=== PATIENT | male | born 2005 | race Two or more races ===

== ENCOUNTER 2024-06-19 12:35 | Emergency (ER) | payer MEDICAID, SELFPAY ==
[2024-06-19 12:40] VITALS: BMI 19.8
--- NOTE | 2024-06-19 12:47 | PD.EDRME ---
Rapid Medical Screening Exam RME Arrival date/time: 06/19/24 12:35 19-year-old male with no known medical history presents to the emergency room with a chief complaint of suicidal ideation. Patient states he is having thoughts of overdosing and hurting himself. Patient states he lost his mom a month ago and since the loss of his mom he has also become homeless. Patient just got released from correction. I have greeted and performed a focused initial assessment of this patient. A comprehensive ED assessment and evaluation of the patient, analysis of all test results, and completion of the medical decision making process will be conducted by additional ED providers. Chief Complaint: Suicidal Time Seen by Provider: 06/19/24 12:43 Vital signs reviewed by provider: Yes
[2024-06-19 12:48] VITALS: BP 141/68; PULSE 89; RESP 16; TEMP 36.7; O2SAT 96
[2024-06-19 13:39] LABS: Amphetamine/Methamp Scrn,U Negative (Negative); Barbiturate Screen,Urine Negative (Negative); Benzodiazepines Screen,Urine Negative (Negative); Benzoylecgonine Screen, Ur Negative (Negative); Fentanyl Screen,Urine Negative (Negative); Opiate Screen,Urine Negative (Negative); THC Screen,Urine Positive (Negative)
--- NOTE | 2024-06-19 14:05 | EDNOTE_ITS ---
ED General RME/HPI General Chief complaint: Suicidal Stated complaint: SI, WITH NO PLAN HE WANTS A GROUP HOME Time Seen by Provider: 06/19/24 12:43 Arrival date/time: 06/19/24 12:35 CC: Suicidal ideation without a plan HPI feeling suicidal for the last 2 days patient is very vague on if he had a plan himself denies any homicidal ideation. Patient denies any physical pain. Last episode was in February 2024. RME / HPI RME / HPI narrative: 06/19/24 12:35 19-year-old male with no known medical history presents to the emergency room with a chief complaint of suicidal ideation. Patient states he is having thoughts of overdosing and hurting himself. Patient states he lost his mom a month ago and since the loss of his mom he has also become homeless. Patient just got released from prison. I have greeted and performed a focused initial assessment of this patient. A comprehensive ED assessment and evaluation of the patient, analysis of all test results, and completion of the medical decision making process will be conducted by additional ED providers. Related Data Allergies Allergy/AdvReac Type Severity Reaction Status Date / Time No Known Allergies Allergy Verified 06/19/24 12:40 Review of Systems Review of Systems Narrative Review of Systems: GEN: No fever, no chills, no weight loss EYES: No discharge, no visual changes, no pain HEENT: No ear pain, no congestion, no sore throat PULM: No shortness of breath, no cough, no congestion CV: No chest pain, no dyspnea on exertion, no palpitations GI: No nausea, no vomiting, no diarrhea, no pain, no constipation : No frequency, no urgency, no dysuria MUSC/SKEL: No joint pain, no back pain SKIN: No rash PSYCH: No hallucinations, no depression, + suicidal ideation HEME/LYMPH: No easy bleeding or bruising tendencies NEURO: No weakness, no headache Past Medical History Past Medical History CARDIAC: Negative Congestive Heart Failure RESPIRATORY: Negative Chronic Obstructive Pulmonary Disease (COPD) GENITOURINARY: Negative Renal Disease ENDOCRINE: Negative Diabetes Mellitus Type 1 or Diabetes Mellitus Type 2 PSYCHO/SOCIAL: Positive Bipolar Disorder, Anxiety and Post Traumatic Stress Disorder Social History SMOKING STATUS: Former smoker ED Exam Narrative Physical exam: [General:Not in any acute distress Head normocephalic HEENT: Within acceptable limits Neck is supple nontender Chest equal chest rise nontender to palpation Respiratory: Clear to auscultation no wheezes crackles or rubs CV: Rate rhythm is regular no murmurs rubs or clicks Abdomen soft nontender no masses positive bowel sounds all 4 quadrants Skin: Intact no petechiae rash induration ulceration or crepitus Extremities: Moving all extremity against resistance cap refill less than 2 seconds neurosensory intact Neuro: Awake alert oriented x3 Glascow coma 15 no focal deficits] Course Quality Measures none Orders Category Date Time Status Suicide precautions NOW Care 06/19/24 12:46 Completed Diet Regular Diet 06/19/24 Dinner Active Alcohol, Urine Stat Lab 06/19/24 14:01 Completed CBC Stat Lab 06/19/24 14:42 Completed CMP [Comprehensive Metabolic Panel] Stat Lab 06/19/24 14:42 Completed Drug Screen,Urine Stat Lab 06/19/24 13:00 Completed Vital Signs Vital signs: Vital Signs Temperature 98.0 F 06/19/24 12:48 Pulse Rate 89 06/19/24 12:48 Respiratory Rate 16 06/19/24 12:48 Blood Pressure 141/68 H 06/19/24 12:48 Pulse Oximetry (%) 96 06/19/24 12:48 Oxygen Delivery Method Room Air 06/19/24 12:48 [facility] Patient data External records reviewed:: [facility] previous records Clinical information provided by:: patient Social determinants that could affect healthcare access:: none Patient has the following chronic illnesses:: Depression How is presenting disease/condition affected by chronic disease/condition?: e xacerbated by Evaluation data The following diagnostics were reviewed and interpreted by me:: lab results Lab and/or radiology exams considered but not ordered:: Cleared for crisis Interpretation Summary: Suicidal ideation Medications Medications considered but not ordered:: None none Medication administrations:: None Consultations Consultation(s) initiated? (list below): No Diagnosis Differential Diagnosis ED Complaint MDM: Suicidal ideation suicide attempt severe depression Most likely diagnosis given after review of the tests above:: Suicidal ideation Admission Indicated Admission indicated?: indicated Explain why admission is indicated or not indicated:: Hold Admission Request Was there a request for admission?: No Disposition Plan Disposition Plan: Transfer Medical Decision Making Differential Diagnosis Differential Diagnosis: Suicidal ideation suicide attempt severe depression Lab Data 06/19/24 14:42 06/19/24 14:42 Labs: Lab Results 06/19/24 06/19/24 06/19/24 Range/Units 13:00 14:01 14:42 WBC 9.3 (3.8-10.6) Thou/mm3 RBC 5.26 (4.50-5.90) Miln/mm3 Hgb 15.2 (13.5-16.0) g/dL Hct 43.1 (41.0-53.0) % MCV 82 (80-100) fL MCH 28.9 (25.0-35.0) pg MCHC 35.3 (31.0-37.0) g/dl RDW Std Deviation 38.6 (35.1-43.9) fL Plt Count 211 (140-440) Thou/mm3 Neut % (Auto) 85 H (37-80) % Lymph % (Auto) 9 L (10-50) % [place] % (Auto) 6 (0-12) % Eos % (Auto) 0 (0-10) % Baso % (Auto) 0 (0-2.5) % Neut # (Auto) 7.9 H (1.8-7.7) Thou/mm3 Lymph # (Auto) 0.8 L (1.0-4.8) Thou/mm3 [place] # (Auto) 0.5 (0.0-0.8) Thou/mm3 Eos # (Auto) 0.0 (0.0-0.5) Thou/mm3 Baso # (Auto) 0.0 (0.0-0.2) Thou/mm3 Immature Gran # (Auto) 0.03 H (0.00-0.00) Thou/mm3 Absolute Nucleated RBC 0.00 (0.00-0.00) Thou/mm3 Immature Gran % 0 (0-0) % Nucleated RBC % 0 (0) /100 WBC Sodium 140 (136-145) mMol/L Potassium 4.1 (3.4-5.1) mMol/L Chloride 104 (98-107) mMol/L Carbon Dioxide 26.0 (20.0-31.0) mMol/L Anion Gap 10 (7-16) BUN 10 (9-23) mg/dL Creatinine 0.9 (0.6-1.3) mg/dL Estim Creat Clear Calc 108.3 (>60) mL/min eGFR > 60 (60 - ) See Note BUN/Creatinine Ratio 11 L (12-20) Ratio Glucose 95 (74-106) mg/dL Calculated Osmolality 278 (275-295) Calcium 9.5 (8.3-10.6) mg/dL Corrected Calcium 9.5 (8.5-10.1) mg/dL Total Bilirubin 1.9 H (0.3-1.2) mg/dL AST 17 (0-34) U/L ALT 13 (10-49) U/L Alkaline Phosphatase 90 (46-116) U/L Total Protein 7.5 (5.7-8.2) gm/dL Albumin 4.9 (3.5-5.0) gm/dL Globulin 2.6 (2.3-3.5) gm/dL Albumin/Globulin Ratio 1.9 (1.2-2.2) Urine Opiates Screen Negative (Negative) Urine Fentanyl Screen Negative (Negative) Ur Barbiturates Screen Negative (Negative) U Amphetamin/Meth Scrn Negative (Negative) U Benzodiazepines Scrn Negative (Negative) U Cocaine Metab Screen Negative (Negative) U Marijuana (THC) Screen Positive A (Negative) Urine Alcohol Negative (Negative) Discharge Plan Plan Patient Disposition: [facility] Patient condition on transfer: Stable Prescriptions/Referrals Referrals: No Primary/Family,Physician [Primary Care Provider] - In 1 week Problem List Clinical Impression: Suicidal ideation, Severe depression Patient/Caregiver Discharge Instructions Print Language: Ecuadorean Stand Alone Forms: [place] Award Info., Patient Portal Info Letter PA/MARSHALL Supervising Physician ANDREW/MARSHALL Supervising Physician: Azael Garber ENP
[2024-06-19 14:08] VITALS: BP 127/60; PULSE 68; RESP 18; TEMP 36.8; O2SAT 97
[2024-06-19 15:02] LABS: Basophils % (Auto) 0 % (0-2.5); Eosinophils % (Auto) 0 % (0-10); Hematocrit 43.1 % (41.0-53.0); Hemoglobin 15.2 g/dL (13.5-16.0); Immature Granulocytes % (Auto) 0 % (0-0); Immature Granulocytes Auto 0.03 Thou/mm3 (0.00-0.00); Lymphocytes # (Auto) 0.8 Thou/mm3 (1.0-4.8); Lymphocytes % (Auto) 9 % (10-50); Mean Corpuscular HGB Conc 35.3 g/dl (31.0-37.0); Mean Corpuscular Hemoglobin 28.9 pg (25.0-35.0); Mean Corpuscular Volume 82 fL (80-100); Monocytes # (Auto) 0.5 Thou/mm3 (0.0-0.8); Monocytes % (Auto) 6 % (0-12); Neutrophils # (Auto) 7.9 Thou/mm3 (1.8-7.7); Neutrophils % (Auto) 85 % (37-80); Nucleated Red Blood Cell % 0 /100 WBC (0); Platelet Count 211 Thou/mm3 (140-440); RDW Standard Deviation 38.6 fL (35.1-43.9); Red Blood Count 5.26 Miln/mm3 (4.50-5.90); White Blood Count 9.3 Thou/mm3 (3.8-10.6)
[2024-06-19 15:24] LABS: Alanine Aminotransferase 13 U/L (10-49); Albumin, Serum 4.9 gm/dL (3.5-5.0); Albumin/Globulin Ratio 1.9 (1.2-2.2); Alkaline Phosphatase 90 U/L (46-116); Anion Gap 10 (7-16); Aspartate Amino Transferase 17 U/L (0-34); BUN/Creatinine Ratio 11 Ratio (12-20); Bilirubin,Total 1.9 mg/dL (0.3-1.2); Blood Urea Nitrogen 10 mg/dL (9-23); Calcium 9.5 mg/dL (8.3-10.6); Calcium (Corrected) 9.5 mg/dL (8.5-10.1); Chloride 104 mMol/L (98-107); Creatinine (Component) 0.9 mg/dL (0.6-1.3); Estimated Creatinine Clearance 108.3 mL/min (>60); Globulin 2.6 gm/dL (2.3-3.5); Glucose 95 mg/dL (74-106); Osmolality,Calculated 278 (275-295); Potassium 4.1 mMol/L (3.4-5.1); Sodium 140 mMol/L (136-145); Total Protein 7.5 gm/dL (5.7-8.2); eGFR > 60 See Note
[2024-06-19 15:49] VITALS: BP 126/63; PULSE 61; RESP 18; TEMP 36.6; O2SAT 97
[2024-06-19 16:05] LABS: Alcohol, Urine Negative (Negative)
--- NOTE | 2024-06-19 17:52 | PC.SS ---
Patient is a 19-year-old male who presents to the Emergency Department for mental health evaluation. Crystal met with patient [id number] to complete assessment. ASW introduced self, role, and reason for assessment. ASW disclosed limits of confidentiality to the patient. Patient appeared alert and oriented to self, place, and situation. During this encounter, the patient was pleasant and cooperative. Patient made appropriate eye contact throughout the assessment and able to engage in assessment appropriately. No signs of hallucinations observed. Patient reports he is feeling suicidal today. Patient has a plan and intent to harm self. Patient informs he would cut his hand with a knife. If released from the hospital, patent also reports he would run into traffic to get hit by a car. Patient is denying Homicidal Ideation. Patient denies having Visual Hallucinations and Audio Hallucinations. Patient reports he has been homeless for a few months now and has been hoping around from staying with relatives and friends. Most recently patient residing with his friend named Jacob who lives in [place]. Patient reports he asked his friend Jacob to drop him off at the ED today because he was feeling suicidal. Patient reports poor support from his friend as he informs he doesn't know whats going on and I don't want to wrap him up in this . Patient reports he is diagnosed with PTSD, Anxiety Disorder and Border Personality Disorder. Patient reports taking the following medication: Xanax 1mg 1 x a day. Patient states he is aligned with mental health services through [facility] and is connected to a psychiatrist Denny Beaver and therapist provider Suze. Patient reports he missed his appointment last week with his therapist as he did not have transportation services. Patient reports being complaint with medication intake. Patient informs he has a history of THC use, most recent use two days ago. Patient states he is independent with ADL's, no use of DME reported. Patient not currently employed. Patient identified his sister, Sara as his emergency contact, who he informs lives in [facility]. Patient gave verbal consent to contact his sister Sara, however she did not anwser call and voicemail was provided with call back number. Upon clinical consultation with SPONGE CLIPPER, Caroline Rooney, the patient meets criteria for 5150-hold for being a danger to self with no viable safety plan. Provider Murray Garber and bed side nurse Patricia were updated on patient's 5150 hold. Patient was provided with advisement of hold. Currently patient is pending LPS placement.
--- NOTE | 2024-06-19 18:14 | PC.NURSE ---
Gave report to Onesimo ROTH. Patient accepted to [facility] in the [facility] by Dr. Avila. Report phone number [phone]
--- NOTE | 2024-06-19 18:23 | PC.SS ---
[facility] provider Dr. Avila accepted the patient. Transportation scheduled for soonest available for 06/20/24 at 2am. [facility] aware and agreeable as this is the soonest ETA. Bed side nurse and provider updated with accepting facility.
[2024-06-19 18:44] VITALS: BP 122/57; PULSE 66; RESP 18; TEMP 37.1; O2SAT 97
[2024-06-19 20:00] VITALS: BP 120/66; PULSE 64; RESP 18; TEMP 36.9; O2SAT 99
[2024-06-20 00:57] VITALS: BP 125/78; PULSE 61; RESP 17; TEMP 36.8; O2SAT 98
--- NOTE | 2024-06-20 03:14 | PC.SS ---
Addendum entered by Kavitha Bradley 06/20/24 03:25: SS follow up note; SS contacted [facility] and spoke to Kimmie, MARCY provided ETA. Original Note: SS follow up note; [facility] reported transportation was never scheduled. SS scheduled transportation with [facility] for 0430.
[2024-06-20 03:51] VITALS: BP 136/67; PULSE 62; RESP 17; TEMP 36.8; O2SAT 99
== END 2024-06-20 03:54 ==
PROVIDERS: Nurse Practitioner Family; Registered Nurse General Practice; Emergency Provider Emergency Medicine
DX: R45.851 Suicidal ideations (principal); Z59.00 Homelessness unspecified; F32.A Depression, unspecified
CPT/HCPCS: 36415; 80053; 80307; 80320; 85025; 96127; 99285; G0480